=== PATIENT | male | born 1950 | race Caucasian/White ===

== ENCOUNTER 2022-05-14 10:10 | Outpatient (CLI) | payer MEDICARE, SELFPAY ==
--- NOTE | 2022-05-14 10:24 | ECG_ITS ---
[facility] Test Date: 2022-05-14 Pat Name: Miko Garcia Department: Room: Gender: Male [employer]: : 1950 Requested By: Benjamín Davidson Order Number: [id number] Pallavi MD: Kyra Mota M.D. Measurements Intervals [place] Rate: 81 P: 52 OK: 161 QRS: -1 QRSD: 96 T: 38 QT: 391 QTc: 456 Interpretive Statements SINUS RHYTHM S1-S2-S3 PATTERN, CONSISTENT WITH PULMONARY DISEASE, RVH, OR NORMAL VARIANT PATTERN CONSISTENT WITH PULMONARY DISEASE Compared to ECG 12/15/2017 09:53:00 Right ventricular hypertrophy now present Sinus bradycardia no longer present Sinus arrhythmia no longer present Electronically Signed On 05-14-2022 16:31:54 CDT by Kyra Mota M.D. [email or web address]
== END 2022-05-14 10:11 | disposition home or self-care (01) ==
LOC: RT 10:16
PROVIDERS: PCP Nurse Practitioner Family; Visit Provider Specialist
DX: D37.01 Neoplasm of uncertain behavior of lip (principal)
CPT/HCPCS: 93005

== ENCOUNTER 2022-05-28 12:19 | Outpatient (CLI) | payer MEDICARE, SELFPAY | END 2022-05-28 12:20 | disposition home or self-care (01) | LOC: LAB 12:20 | PROVIDERS: PCP Nurse Practitioner Family; Visit Provider Specialist | DX: C44.02 Squamous cell carcinoma of skin of lip (principal) | CPT/HCPCS: 88305; 88331; 88342 ==

== ENCOUNTER → 2022-08-21 08:40 | Outpatient (BNVA) | payer MEDICARE, SELFPAY | PROVIDERS: PCP Family Medicine; Visit Provider Family Medicine | DX: G47.33 Obstructive sleep apnea (adult) (pediatric) (principal); K21.9 Gastro-esophageal reflux disease without esophagitis; E03.9 Hypothyroidism, unspecified; I10 Essential (primary) hypertension; R51.9 Headache, unspecified; G89.29 Other chronic pain; Z13.6 Encounter for screening for cardiovascular disorders; Z00.00 Encounter for general adult medical examination without abnormal findings | CPT/HCPCS: 80053; 80061; 84443 ==

== ENCOUNTER → 2023-01-21 08:55 | Outpatient (BNVA) | payer MEDICARE, SELFPAY | PROVIDERS: PCP Family Medicine; Visit Provider Podiatrist Foot & Ankle Surgery | DX: M21.41 Flat foot [pes planus] (acquired), right foot (principal); M21.42 Flat foot [pes planus] (acquired), left foot; M77.42 Metatarsalgia, left foot; M77.41 Metatarsalgia, right foot; G62.9 Polyneuropathy, unspecified; R60.9 Edema, unspecified | CPT/HCPCS: 99203 ==

== ENCOUNTER → 2023-01-30 08:28 | Outpatient (BNVA) | payer MEDICARE, SELFPAY | PROVIDERS: PCP Family Medicine; Visit Provider Family Medicine | DX: Z00.00 Encounter for general adult medical examination without abnormal findings (principal); R60.9 Edema, unspecified; I10 Essential (primary) hypertension; E03.9 Hypothyroidism, unspecified | CPT/HCPCS: 80053; 80061; 84443; 85025 ==

== ENCOUNTER → 2023-02-06 08:54 | Outpatient (BNVA) | payer MEDICARE, SELFPAY | PROVIDERS: PCP Family Medicine; Visit Provider Family Medicine | DX: Z00.00 Encounter for general adult medical examination without abnormal findings (principal); R60.9 Edema, unspecified; I10 Essential (primary) hypertension; E03.9 Hypothyroidism, unspecified | CPT/HCPCS: 80048 ==

== ENCOUNTER 2023-03-25 07:21 | Outpatient (RCR) | payer MEDICARE, SELFPAY | END 2023-04-13 23:59 | disposition home or self-care (01) | LOC: SPT 07:21 | PROVIDERS: PCP Family Medicine; Visit Provider Family Medicine | DX: S76.319D Strain of muscle, fascia and tendon of the posterior muscle group at thigh level, unspecified thigh, subsequent encounter (principal); X58.XXXD Exposure to other specified factors, subsequent encounter | CPT/HCPCS: 97162 ==

== ENCOUNTER 2023-04-14 06:00 | Outpatient (RCR) | payer MEDICARE, SELFPAY | END 2023-04-24 23:59 | disposition home or self-care (01) | LOC: SPT 06:00 | PROVIDERS: PCP Family Medicine; Visit Provider Family Medicine | DX: S76.319D Strain of muscle, fascia and tendon of the posterior muscle group at thigh level, unspecified thigh, subsequent encounter (principal); X58.XXXD Exposure to other specified factors, subsequent encounter | CPT/HCPCS: 97110; G0283 ==

== ENCOUNTER 2023-05-07 12:06 | Outpatient (CLI) | payer MEDICARE, SELFPAY ==
--- NOTE | 2023-05-07 12:26 | XR_ITS ---
WS: [id number] EXAMINATION: XR knee LT 3V* [id number] REASON FOR EXAM: M25.569 - Pain in unspecified knee COMPARISON: 03/11/2018 ORDER DATE: 05/07/2023 12:49 PM FINDINGS: There is satisfactory alignment of the prostheses at the knee joint. There is satisfactory prosthesis positioning of the total knee replacement components. There is no sign of periprosthetic osseous abn ormality or hardware failure. Soft tissues are unremarkable. IMPRESSION: Stable appearance of the total knee arthroplasty.
== END 2023-05-07 12:07 | disposition home or self-care (01) ==
PROVIDERS: PCP Family Medicine; Visit Provider Family Medicine
DX: E87.1 Hypo-osmolality and hyponatremia (principal); M25.562 Pain in left knee; Z96.652 Presence of left artificial knee joint
CPT/HCPCS: 73562; 80048

== ENCOUNTER → 2024-03-29 08:03 | Outpatient (BNVA) | payer MEDICARE, SELFPAY | PROVIDERS: PCP Family Medicine; Visit Provider Student in an Organized Health Care Education/Training Program | DX: M18.12 Unilateral primary osteoarthritis of first carpometacarpal joint, left hand (principal); M65.4 Radial styloid tenosynovitis [de Quervain] | CPT/HCPCS: 99203 ==

== ENCOUNTER → 2025-03-22 09:46 | Outpatient (BNVA) | payer MEDICARE, SELFPAY | PROVIDERS: PCP Family Medicine; Visit Provider Family Medicine | DX: I10 Essential (primary) hypertension (principal); E03.9 Hypothyroidism, unspecified; M19.019 Primary osteoarthritis, unspecified shoulder; G47.33 Obstructive sleep apnea (adult) (pediatric); E66.9 Obesity, unspecified | CPT/HCPCS: 80053; 80061; 84443 ==

== ENCOUNTER 2025-04-06 08:10 | Outpatient (CLI) | payer MEDICARE, SELFPAY ==
--- NOTE | 2025-04-06 08:40 | MR_ITS ---
WS: [id number] MRI LEFT SHOULDER NONCONTRAST TECHNIQUE: Sagittal T2, coronal T1, T2 and proton density imaging. Axial gradient PDE imaging. CLINICAL INFORMATION: LEFT SHOULDER IMPINGEMENT COMPARISON: None. FINDINGS: Advanced degenerative arthritis AC joint with small amount of fluid and edema. Mild downsloping acromion. Subacromial spurring. Impingement on the distal supraspinatus. Tendinopathy in the distal supraspinatus and infraspinatus with chronic thinning. Tiny insertional tear distal supraspinatus no high-grade tears. Normal teres minor. Normal subscapularis tendon. Biceps tendon appears intact within the bicipital groove. Intra-articular biceps tendon appears intact. Moderate to advanced degenerative narrowing glenohumeral articulation. Degenerative fraying of the glenoid labrum. Cystic degenerative changes of the greater tuberosity. No other acute findings. MR/MR shoulder LT wo con* [id number] IMPRESSION: 1. Advanced degenerative arthritis AC joint with a small amount of fluid and e lennox. Subacromial spurring with narrowing of the subacromial space. 2. Chronic thinning of the supraspinatus and infraspinatus with tendinopathy. 3. Tiny insertional tear supraspinatus. No high-grade tears. 4. Biceps tendon appears intact within the bicipital groove. Intra-articular b iceps tendon appears intact. 5. Moderate to advanced degenerative narrowing glenohumeral circulation
== END 2025-04-06 08:11 | disposition home or self-care (01) ==
LOC: RAD 08:11
PROVIDERS: PCP Family Medicine; Visit Provider Orthopaedic Surgery
DX: M75.42 Impingement syndrome of left shoulder (principal); M19.012 Primary osteoarthritis, left shoulder; M67.814 Other specified disorders of tendon, left shoulder
CPT/HCPCS: 73221

== ENCOUNTER → 2025-08-23 11:32 | Outpatient (BNVA) | payer MEDICARE, SELFPAY | PROVIDERS: PCP Family Medicine; Visit Provider Family Medicine | DX: R60.9 Edema, unspecified (principal) | CPT/HCPCS: 80048 ==